=== PATIENT | female | born 1970 | race Caucasian/White ===

== ENCOUNTER 2024-12-04 14:00 | Emergency (ER) | payer OTHER, SELFPAY ==
[2024-12-04 14:02] VITALS: BP 116/70
--- NOTE | 2024-12-04 15:52 | ED.GENMED ---
History of Present Illness
General
Chief Complaint: Swelling
Source: patient
Time Seen by Provider: 12/04/24 15:22
History of Present Illness
History of Present Illness:
This patient is a 54-year-old female presents the emergency department with complaints of a rash that she first noticed a few days ago but noticed that it seemed to be particularly worse today. Is located specifically on her lower extremities, left
greater than right without associated pain or discomfort, itchiness, fever, chills, sweats. She denies recent trauma or falls, history of tick bites, joint pain, chest pain, shortness of breath, drainage, or other complaints.
Past History
Past History
ED Past Medical History: Psychiatric and Other (Irritable bowel syndrome, ADHD, depression, alcohol abuse)
ED Past Surgical History: Orthopedic and Other (Breast augmentation)
Social History
Tobacco: Non-smoker
Alcohol: Occasional
Drug: Marijuana
Employment: Employed
Family History
Family History: CAD and Other (Noncontributory)
Phy Exam
Physical Exam
Physical Exam:
GENERAL: Alert , in no apparent distress
EYE: pupils equal and reactive
NECK: Supple, no significant adenopathy.
ENT: o/p clr, mmm.
CARDIAC: Regular rate and rhythm .
LUNGS: Clear breath sounds bilaterally, no acute respiratory distress, no wheezes/rales/rhonchi
ABDOMEN: Soft, without focal tenderness, no r/g, no cvat
NEUROLOGICAL: Alert and oriented, no focal neuro deficits
SKIN: Warm and dry, skin intact. There is a rash noted at bilateral lower extremity hanna area, left greater than right, noted to be without blistering, drainage, induration, fluctuance, open wound. Rash is macular without clear borders.
MUSCULOSKELETAL: No edema, well perfused.
PSYCH: Normal and appropriate interaction.
Course
Orders/Labs/Results
Orders:
Orders
12/04/24 15:52
US Periph Venous LOWER Ext LT Urgent
Comment:
Reason For Exam: swelling
Vital Signs
Initial and Last Documented VS:
Initial Vital Signs
Temp Pulse Resp BP Pulse Ox
98.3 F 68 18 116/70 100
12/04/24 14:02 12/04/24 14:02 12/04/24 14:02 12/04/24 14:02 12/04/24 14:02
Last Documented Vital Signs
Temp Pulse Resp BP Pulse Ox
98.3 F 68 18 116/70 100
12/04/24 14:02 12/04/24 14:02 12/04/24 14:02 12/04/24 14:02 12/04/24 15:55
*Pulse Oximetry
SaO2: 100
Oxygen Mode of Delivery: Room air
Update Note
Update Note:
Patient presents to the Emergency Department with rash
Number and Complexity of Problems Addressed at the Encounter
� Chronic conditions affecting care:
� Acute Exacerbation and/or Progression of Chronic Illness:
� Differential Diagnosis includes:but not imited to cellulitis,
Amount and/or Complexity of Data to be Reviewed and Analyzed
� I performed an independent evaluation of and my interpretation is:
EKG:
CT:
Xrays:
Laboratory Studies:
Other:us left le, read by mathew aquino
� Review of other/old records reveals:
� Clinical information was obtained by an independent historian:
� Prescriptions/Medications Considered but not given:
� Further testing considered but not performed:
Risk of Complications and/or Morbidity or Mortality of Patient Management
� Social determinants of health affecting care:
� Discussion with other providers (PCP, Hospitalists, Consultants, etc):
� Escalation of care including admission/observation vs risk of discharge considered:US neg for DVT. Rash not suggestive of celluitis, lyphangitis, ECM, SJS, TENS, etc. Suspect skin vasculitis vs allergic. D/w pt import of f/u
and reasons to rted, will start prednisone, derm f/u. No joint pain, jaw claudication, cough, arthralgia etc etc.
ED Attending Note
-
Portions of this chart may have been created with voice recognition software.� Occasional wrong word or��sound alike� substitutions may have occurred due to the inherent limitations of voice recognition software.
Discharge Plan
Departure
Patient Disposition: Home (Routine Discharge)
Date of Disposition: 12/04/24
Time of Disposition: 16:38
Patient with high blood pressure during this ER visit?: No
Condition: Good
Discharge Problem:
Rash
Instructions: Skin rash - ED (DC)
Prescriptions:
New
prednisone 50 mg tablet
50 mg PO DAILY Qty: 5 0RF
No Action
Adderall
10 mg PO BID
sertraline 100 MG tablet
100 mg PO DAILY
lamotrigine 25 MG tablet, chewable dispersible
50 mg PO BID
dextroamphetamine-amphetamine [Adderall] 30 MG tablet
30 mg PO .DAILY PRE BREAKFAST
dextroamphetamine-amphetamine [Adderall] 20 MG tablet
10 mg PO BID
dextroamphetamine-amphetamine [Adderall XR] 30 MG capsule,extended release 24hr
30 mg PO .DAILY PRE BREAKFAST
Referrals:
Beti Ramos MD [Consulting Staff, Dermatology] - Next open appointment
Activity Restrictions/Additional Instructions:
PLEASE MONITOR THE AREA CLOSELY. IF YOU NOTICE WORSENING RASH, JOINT PAIN, FEVER, COUGH, LIP OR TONGUE SWELLING, TROUBLE BREATHING, CHEST PAIN, OR OTHER WORRISOME SIGNS, PLEASE SEE YOUR DOCTOR OR RETURN TO THE EMERGENCY DEPARTMENT IMMEDIATELY
EXCLAMATION
Discharge Date and Time
Print Language: SAMI
[2024-12-04] MEDS: DELTASONE 50 MG PO (16:53)
== END 2024-12-04 17:39 | disposition home or self-care (01) ==
LOC: EMR 14:00
PROVIDERS: EMERGENCY PHYSICIAN Emergency Medicine; FAMILY PHYSICIAN Family Medicine
DX: R21 Rash and other nonspecific skin eruption (principal); K58.9 Irritable bowel syndrome, unspecified; F90.9 Attention-deficit hyperactivity disorder, unspecified type; F32.A Depression, unspecified; F10.10 Alcohol abuse, uncomplicated
CPT/HCPCS: 99284; 93971